=== PATIENT | male | born 1965 | race Caucasian/White ===

== ENCOUNTER 2022-09-12 10:36 | Outpatient (REF) | payer OTHER, SELFPAY ==
--- NOTE | ~2022-09-12 | XR_ITS ---
EXAMINATION: XR RIGHT KNEE XR RIGHT ANKLE XR RIGHT FOOT CLINICAL INFORMATION: Injury of right lower leg. COMPARISON: None TECHNIQUE: AP, lateral and oblique views of the right foot. AP and oblique views of the right ankle. AP, bilateral oblique and lateral views of the right knee. FINDINGS: Right ankle: Alignment is anatomic. Ankle mortise is maintained. The talar dome is intact. No displaced fracture or dislocation. Right foot: Alignment is anatomic. Moderate joint space narrowing of the first MTP joint with marginal osteophytes and overlying soft tissue swelling.. Old healed fracture of the fifth metatarsal. No acute displaced fracture or dislocation. Small plantar calcaneal spur. Right knee: Alignment is anatomic. Mild medial tibiofemoral cartilage space loss. Chondrocalcinosis. No displaced fracture. Small suprapatellar joint effusion. XR/XR foot RT min 3V IMPRESSION: No acute abnormality. Please see full report see details above.
--- NOTE | ~2022-09-12 | XR_ITS ---
EXAMINATION: XR RIGHT KNEE XR RIGHT ANKLE XR RIGHT FOOT CLINICAL INFORMATION: Injury of right lower leg. COMPARISON: None TECHNIQUE: AP, lateral and oblique views of the right foot. AP and oblique views of the right ankle. AP, bilateral oblique and lateral views of the right knee. FINDINGS: Right ankle: Alignment is anatomic. Ankle mortise is maintained. The talar dome is intact. No displaced fracture or dislocation. Right foot: Alignment is anatomic. Moderate joint space narrowing of the first MTP joint with marginal osteophytes and overlying soft tissue swelling.. Old healed fracture of the fifth metatarsal. No acute displaced fracture or dislocation. Small plantar calcaneal spur. Right knee: Alignment is anatomic. Mild medial tibiofemoral cartilage space loss. Chondrocalcinosis. No displaced fracture. Small suprapatellar joint effusion. XR/XR ankle RT 2V IMPRESSION: No acute abnormality. Please see full report see details above.
--- NOTE | ~2022-09-12 | XR_ITS ---
EXAMINATION: XR RIGHT KNEE XR RIGHT ANKLE XR RIGHT FOOT CLINICAL INFORMATION: Injury of right lower leg. COMPARISON: None TECHNIQUE: AP, lateral and oblique views of the right foot. AP and oblique views of the right ankle. AP, bilateral oblique and lateral views of the right knee. FINDINGS: Right ankle: Alignment is anatomic. Ankle mortise is maintained. The talar dome is intact. No displaced fracture or dislocation. Right foot: Alignment is anatomic. Moderate joint space narrowing of the first MTP joint with marginal osteophytes and overlying soft tissue swelling.. Old healed fracture of the fifth metatarsal. No acute displaced fracture or dislocation. Small plantar calcaneal spur. Right knee: Alignment is anatomic. Mild medial tibiofemoral cartilage space loss. Chondrocalcinosis. No displaced fracture. Small suprapatellar joint effusion. XR/XR knee RT 4V IMPRESSION: No acute abnormality. Please see full report see details above.
== END 2022-09-12 10:37 | disposition home or self-care (01) ==
LOC: HO.HMGCX 10:36
PROVIDERS: PCP Family Medicine; Visit Provider Physician Assistant Medical
DX: S99.921A Unspecified injury of right foot, initial encounter (principal); S89.91XA Unspecified injury of right lower leg, initial encounter; S99.911A Unspecified injury of right ankle, initial encounter; X58.XXXA Exposure to other specified factors, initial encounter; Y93.9 Activity, unspecified; Y92.9 Unspecified place or not applicable; Y99.9 Unspecified external cause status
CPT/HCPCS: 73564; 73600; 73630